=== PATIENT | female | born 1985 | race Two or more races ===

== ENCOUNTER 2016-08-22 12:46 | Outpatient (CLI) | payer MEDICAID ==
[2016-08-22 14:03] LABS: SPECIFIC GRAVITY 1.015 (1.001-1.030); URINE APPEARANCE CLEAR; URINE BILIRUBIN NEGATIVE (NEGATIVE); URINE BLOOD NEGATIVE (NEGATIVE); URINE COLOR LIGHT YELLOW; URINE GLUCOSE (UA) NEGATIVE (NEGATIVE); URINE LEUKOCYTE ESTERASE NEGATIVE (NEGATIVE); URINE NITRITE NEGATIVE (NEGATIVE); URINE PROTEIN NEGATIVE (NEGATIVE); URINE UROBILINOGEN NORMAL (0-1 mg/dl)
[2016-08-23 15:33] LABS: CHLAMYDIA BD Negative (Negative); N.GONORRHOEAE BD Negative (Negative); SOURCE Urine (())
== END 2016-08-22 16:00 | disposition home or self-care (01) ==
LOC: FBCOUT 12:46 → FBC 12:50 → FBCOUT 16:00
PROVIDERS: ATTEND Family Medicine
DX: O26.899 Other specified pregnancy related conditions, unspecified trimester (principal); R10.2 Pelvic and perineal pain; Z3A.00 Weeks of gestation of pregnancy not specified
CPT/HCPCS: 87491; 87591; 81003; 87210; 59050; G0463

== ENCOUNTER 2016-10-04 22:20 | Outpatient (CLI) | payer MEDICAID ==
[2016-10-04 22:42] VITALS: BMI 30.7
[2016-10-04 22:55] LABS: URINE BILIRUBIN NEGATIVE (NEGATIVE); URINE BLOOD NEGATIVE (NEGATIVE); URINE GLUCOSE (UA) NEGATIVE (NEGATIVE); URINE LEUKOCYTE ESTERASE NEGATIVE (NEGATIVE); URINE NITRITE NEGATIVE (NEGATIVE); URINE PROTEIN NEGATIVE (NEGATIVE); URINE UROBILINOGEN NORMAL (0-1 mg/dl)
[2016-10-04 22:57] LABS: URINE APPEARANCE CLEAR; URINE COLOR YELLOW
[2016-10-04] MEDS ORDERED: FENTANYL 100 MCG/2 ML VIAL IV PRN (23:12)
[2016-10-04] MEDS ORDERED: LACTATED RINGERS 1,000 ML ONE (23:15)
[2016-10-04] MEDS ORDERED: IV START KIT ONE (23:15)
[2016-10-04] MEDS ORDERED: LACTATED RINGERS 1,000 ML IV SCH (23:45)
[2016-10-05 00:14] LABS: HEMATOCRIT 39.5 % (37.0-47.0); HEMOGLOBIN 13.6 gm/l (12.0-16.0); MEAN CELL VOLUME 89.6 fl (81.0-99.0); MEAN CORPUSCULAR HEMOGLOBIN 30.8 pg (27.0-31.0); MEAN CORPUSCULAR HGB CONC 34.4 g/dl (33.0-37.0); RED CELL DISTRIBUTION WIDTH 12.7 % (11.5-14.5)
[2016-10-05 00:28] LABS: ALBUMIN 3.3 gm/dL (3.5-5.7); CALCIUM 9.2 mg/dL (8.6-10.3)
--- NOTE | 2016-10-05 01:19 | PDOC36 ---
Provider Note Note: cc: Admission H&P HPI: 31 y.o. year old SANDRA 12/16/2016, by Last Menstrual Period at 29w5d who presented to L&D after feeling a sharp stabbing pain in her left abdomen about 3 hours earlier in the evening. The pain was 10/10, severe with radiation up into the left upper quadrant. The pain took her breath away and felt like a stretching sensation. The pain continued for the next couple of hours, intermittently, and she presented to the hospital for further evaluation. Upon presentation, the pain remained 10/10. She has had round ligament pain several times during the , but nothing like this. She was given 50 mcg of fentanyl for pain control with minimal relief. REVIEW OF SYSTEMS GENERAL:~ No fever or headache EYES:~ No double or blurry vision. CARDIOVASCULAR:~ No chest pain. RESPIRATORY:~ No severe shortness of breath or cough. GASTROINTESTINAL:~ No nausea or vomiting or right upper quadrant pain.~ PSYCHIATRIC:~ Positive for severe anxiety. PROBLEMS Normal Round Ligament Pain Section x 2 OB HISTORY #: 1, Date: 11/29/03, Sex: Female, Weight: 4 kg (8 lb 13.1 oz), GA: 38w0d, Delivery: , Low Transverse, Apgar1: None, Apgar5: None, Living: Yes, Comments: Pt. stated had passed large clots C/S done #: 2, Date: 10/20/08, Sex: Female, Weight: 4.082 kg (9 lb), GA: 38w0d, Delivery : , Low Transverse, Apgar1: None, Apgar5: None, Living: Yes, Comments: None #: 3, Current PSH C Section x 2 SOC HX Reports that she has never smoked. She has never used smokeless tobacco. She reports that she drinks alcohol. She reports that she does not use illicit drugs. ALL No Known Allergies MEDICATIONS ~ multivitamin (ULTRATABS) tablet, Take 1 tablet by mouth daily., Disp : 90 each, Rfl: 3 PHYSICAL EXAMINATION VITAL SIGNS:~ 114/69, 98.4F, 67 bpm 18 rpm Estimated body mass index is 30.64 Weight as of 09/23/16: 81 kg (178 lb 9.2 oz). Total weight gain is 5.249 kg (11 lb 9.2 oz) FHT:~ 120s Category I [place]:~ No contractions SVE:~ DNE GENERAL:~ Anxious CARDIOVASCULAR:~ Regular rate and rhythm, no murmur, JVD or pedal edema. RESPIRATORY:~ Clear to auscultation bilaterally, respiratory effort is nonlabored at rest. GASTROINTESTINAL:~ Gravid tender along the left uterus and left upper quadrant, no rebound tenderness, positive bowel sounds, No HSM NEUROLOGIC:~ Deep tendon reflexes are 2+ in the knees.~ Cranial nerves II-XII are grossly intact. PSYCHIATRIC:~ Alert and oriented x3, judgment and memory is intact, mood is anxious LABS & STUDIES O+ Antibody- Rubella Immune Hep B- HIV- GC/Chlamydia- Trep- Hgb 13.6 GBS ? ULTRASOUNDS 10 wks - Consistent with LMP. Live intrauterine . Normal appearing uterus and fluid. No obvious adnexal masses noted. 21 wks - Consistent with last menstrual period and 1st ultrasound. Male fetus. Anterior grade 1 placenta without previa, a central cord insertion. Normal survey, normal fluid. ASSESSMENT 31 y.o. year old SANDRA 12/16/2016, by Last Menstrual Period at 29w5d with acute left sided uterine tenderness PLAN Acute Left Sided Uterine Tenderness: Differential would include ovarian torsion , pancreatitis, ulcer, kidney stone or pyelonephritis. Labs ordered and showed no abnormalities. A bedside US showed a normal appearing left ovary with blood flow. The probe was placed over the lower uterine segment and no obvious uterine rupture was noted. FHTs were reassuring throughout her stay. The probe was placed over the area that was most painful and the baby was noted to be transverse while the feet were kicking directly in that area. This certainly could be causing some pain, although I wouldnt expect it to be causing as much pain as the patient was feeling. She was reassured and monitored for another couple of hours and her pain improved. The baby and the patient remained stable and were sent home with followup at the clinic in a couple of days. She can use Tylenol for pain control. Jesus Montelongo MD MPH
[2016-10-05] MEDS ORDERED: FENTANYL 100 MCG/2 ML VIAL IV PRN (01:23)
[2016-10-05] MEDS ORDERED: PROMETHAZINE HCL 25 MG/ML VIAL IM ONE (01:24)
[2016-10-05 01:54] LABS: AMPHETAMINES/METHAMPHETAMINES NEGATIVE (NEGATIVE); COCAINE NEGATIVE (NEGATIVE); MARIJUANA NEGATIVE (NEGATIVE); METHADONE NEGATIVE (NEGATIVE); OPIATES NEGATIVE (NEGATIVE); TRICYCLIC ANTIDEPRESSANTS NEGATIVE (NEGATIVE)
--- NOTE | 2016-10-05 08:27 | US ---
PELVIC LIMITED HISTORY: Acute left-sided pain for 3 hours. Question of ovarian torsion. COMPARISONS: None FINDINGS: Multiple grayscale, color-flow and duplex Doppler images during Limited pelvic ultrasound are obtained. Incidental note is made of an intrauterine gestation with heart tones of 133 bpm. Estimated date of delivery is 12/16/2016. Fetus is 29 weeks and 3 days. Fetus is transverse with head to maternal right. Left ovary measures 2.2 x 2.5 x 1.2 cm with arterial and venous blood flow. No abnormality is noted within the left adnexal region. IMPRESSION: No evidence of ovarian torsion or other lesion. Incidental note is made of a gravid uterus with heart tones of 133 bpm. Preliminary report was provided by [facility] at approximately 0122 hours on 10/04/2016.
== END 2016-10-05 03:55 | disposition home or self-care (01) ==
LOC: FBCOUT 22:20 → FBC 22:20 → FBCOUT 10-05 03:55
PROVIDERS: ATTEND Family Medicine
DX: O26.893 Other specified pregnancy related conditions, third trimester (principal); Z3A.29 29 weeks gestation of pregnancy; R10.32 Left lower quadrant pain
CPT/HCPCS: 96374; 96372; 96375; 83690; 82150; 85027; 80305; 80053; 81003; 76857; 59025; J3010; J2550; J7120; G0463